=== PATIENT | male | born 1970 | race Caucasian/White ===

== ENCOUNTER 2025-05-10 19:56 | Emergency (ER) | payer BC ==
[2025-05-10 20:40] LABS: Absolute Lymphocytes (CBC) 3.2 K/uL (0.7-4.9); Hematocrit 43.2 % (39.6-49.0); Hemoglobin 15.5 g/dL (13.6-17.9); MCH 32.2 pg (27.0-35.0); MCHC 35.8 g/dL (32.0-36.0); MCV 89.9 fL (80-100); MPV 8.4 fL (7.6-11.3); Nucleated RBC Absolute Count 0.0 (0-0); Nucleated Red Blood Cells % 0.1 % (0-0); RBC Red Blood Cell Count 4.81 M/uL (4.33-5.43); White Blood Count 7.60 thou/uL (4.3-10.9)
[2025-05-10 20:44] LABS: PT Prothrombin Time 12.1 SECONDS (10-13.0); Protime INR 1.07
[2025-05-10 20:56] LABS: ALT/SGPT 49.0 U/L (16-61); AST/SGOT 29.0 U/L (15-37); Albumin 3.6 g/dL (3.4-5.0); Albumin/Globulin Ratio 1.0 (1.1-1.8); Alkaline Phosphatase 81.0 U/L (45-117); Anion Gap 11.9 mEq/L (5.0-15.0); BUN Blood Urea Nitrogen 10.0 mg/dL (7-18); Bilirubin Indirect, Calculated 0.4 mg/dL (0.2-0.8); Globulin 3.7 g/dL (2.3-3.5); Glucose Level 110.0 mg/dL (74-106); Magnesium 2.2 mg/dL (1.6-2.4); NT PRO-BNP 44.0 pg/mL (<125); Potassium 3.9 mEq/L (3.5-5.1); Troponin High Sensitivity 4.7 pg/mL (<58.9)
[2025-05-10] MEDS ORDERED: ASPIRIN 81 MG CHEWABLE TABLET ONE (21:16)
--- NOTE | 2025-05-10 21:17 | RAD REPORT ---
Procedure: Chest Single View HISTORY: Chest pain COMPARISON: 2007 FINDINGS: The lungs appear clear of acute infiltrate. No significant pleural effusion noted. The heart is normal size. IMPRESSION: No acute abnormality is displayed.
--- NOTE | 2025-05-10 21:50 | RAD REPORT ---
EXAMINATION: CTA CHEST PE CLINICAL INDICATION: Chest pain TECHNIQUE: 100 cc 370 Isovue administered intravenously. This examination was performed according to an angiographic protocol with 3D post-processing. This involves 3D reconstructions, MIPs, volume rendered images and/or shaded surface rendering. One or more of the following dose reduction techniqu es were used: Automated exposure control, adjustment of the mA and/or kV according to patient size, and/or iterative reconstruction. Unless otherwise specified, incidental findings do not require dedic ated imaging follow-up. [id number]. COMPARISON: No prior exam. FINDINGS: The opacification pulmonary arteries is suboptimal. No gross pulmonary embolus seen. An aortic aneurysm not noted. No pleural effusion. No pericardial effusion. Lungs are clear. Apparent mild thickening wall of the distal esophagus IMPRESSION: No gross pulmonary embolus seen Apparent mild thickening wall of the distal esophagus could be secondary to incomplete distention or inflammation
--- NOTE | 2025-05-10 23:14 | EDPHYS ---
Physician Documentation [facility] Name: Swapnil Purdy Age: 54 yrs Sex: Male : 1970 Arrival Date: 05/10/2025 Time: 19:56 Bed 8 Private MD: ED Physician Chris Moss HPI: 05/10 20:10 This 54 yrs old Male presents to ER via Ambulatory with complaints of Chest Pain. cp 20:10 The patient or guardian reports chest pain that is located primarily in the anterior cp chest wall, left. 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 The pain radiates to the left arm. The chest cp pain is described as sharp. Duration: The patient or guardian reports a single episode, that is still ongoing, but improving. Historical: - Allergies: 20:06 No Known Allergies; me1 - PMHx: 20:06 Hypertensive disorder; Asthma; me1 - PSHx: 20:06 Operative procedure on knee; me1 - Immunization history:: Adult Immunizations up to date. - Infectious Disease History:: Denies. - Social history:: Smoking status: Patient denies any tobacco usage or history of. ROS: 20:15 Constitutional: Negative for body aches, chills, fever, poor PO intake, cp 20:15 Cardiovascular: Positive for chest pain, cp 20:15 Eyes: Negative for injury, pain, redness, and discharge, cp 20:15 ENT: Negative for drainage from ear(s), ear pain, sore throat, difficulty swallowing, difficulty handling secretions, 20:15 Respiratory: Negative for cough, shortness of breath, wheezing, cp 20:15 Abdomen/GI: Negative for abdominal pain, vomiting, diarrhea, constipation, 20:15 Back: Negative for radiated pain, 20:15 Neuro: Negative for altered mental status, dizziness, headache, numbness, weakness, 20:15 All other systems are negative, Exam: 20:16 Constitutional: The patient appears in no acute distress, alert, awake, cp non-diaphoretic, non-toxic, well developed, well nourished, 20:16 Head/Face: Normocephalic, atraumatic. cp 20:16 Eyes: Periorbital structures: appear normal, Conjunctiva: normal, no exudate, no injection, Sclera: no appreciated abnormality, Lids and lashes: appear normal, bilaterally, 20:16 ENT: External ear(s): are unremarkable, Nose: is normal, Mouth: Lips: moist, Oral mucosa: moist, Posterior pharynx: Airway: no evidence of obstruction, patent, 20:16 Neck: ROM/movement: is normal, is supple, without pain, no range of motions limitations, 20:16 Chest/axilla: Inspection: normal, Palpation: crepitus, is not appreciated, tenderness, is not appreciated, 20:16 Cardiovascular: Rate: normal, Rhythm: regular, Edema: is not appreciated, JVD: is not appreciated, 20:16 Respiratory: the patient does not display signs of respiratory distress, Respirations: normal, no use of accessory muscles, no retractions, labored breathing, is not present, Breath sounds: are clear throughout, no decreased breath sounds, no stridor, no wheezing, 20:16 Abdomen/GI: Inspection: abdomen appears normal, Palpation: abdomen is soft and non-tender, in all quadrants, 20:16 Back: pain, is absent, ROM is normal, 20:16 Neuro: Orientation: to person, place \T\ time. Mentation: is normal, Motor: moves all fours, strength is normal, Sensation: is normal, 20:17 ECG was reviewed by the Attending Physician. Vital Signs: 20:04 BP 126 / 83; Pulse 95; Resp 18; Temp 98.1; Pulse Ox 98% ; Weight 120.2 kg; Height 6 ft. me1 2 in. ; Pain 3/10; 22:45 BP 115 / 81; Pulse 80; Resp 18; Pulse Ox 97% on R/A; lg3 20:04 Body Mass Index 34.02 (120.20 kg, 187.96 cm) me1 20:04 Pain Scale: Adult me1 MDM: 20:07 Medical Screening Exam initiated cp 21:00 Differential diagnosis: abnormal EKG, acute myocardial infarction, pancreatitis, cp pleurisy, pneumonia, pneumothorax, pulmonary embolus, stable angina, thoracic aortic disection, unstable angina. 23:11 Data reviewed: vital signs, nurses notes, lab test result(s), EKG, radiologic studies, cp CT scan, plain films. ED course: Vital signs stable. Chest pain resolved. Discussed results of today's testing to include negative initial and repeat troponin, EKG negative for STEMI and CT chest negative for PE. 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 23:11 I considered the following discharge prescriptions or medication management in the emergency department Medications were administered in the Emergency Department. See MAR. 23:11 Independent interpretation of the following test(s) in the Emergency Department EKG: See my EKG interpretation above X-Ray: My interpretation is chest image negative for infiltrates. Care significantly affected by the following chronic conditions: Hypertension. Counseling: I had a detailed discussion with the patient and/or guardian regarding the historical points, exam findings, and any diagnostic results supporting the discharge/admit diagnosis, lab results, radiology results, the need for outpatient follow up, a oceanic sciences professor, to return to the emergency department if symptoms worsen or persist or if there are any questions or concerns that arise at home. Response to treatment: the patient's symptoms have resolved after treatment, the patient's pain is gone. 05/10 20:07 Order name: Basic Metabolic Panel; Complete Time: 22:13 05/10 22:13 Interpretation: Normal except: NA 134; GLUC 110; CA 8.3. 05/10 20:07 Order name: CBC with Diff; Complete Time: 22:13 05/10 20:07 Order name: LFT's; Complete Time: 22:13 cp 05/10 20:07 Order name: Magnesium; Complete Time: 22:13 05/10 20:07 Order name: NT PRO-BNP; Complete Time: 22:13 cp 05/10 20:07 Order name: PT-INR; Complete Time: 22:13 cp 05/10 20:07 Order name: Troponin HS; Complete Time: 22:13 cp 05/10 22:13 Interpretation: Reviewed. 05/10 22:14 Order name: Troponin High Sensitivity; Complete Time: 23:11 cp 05/10 23:11 Interpretation: Reviewed. 05/10 20:07 Order name: XRAY Chest (1 view); Complete Time: 22:13 cp 05/10 21:14 Order name: CT Chest For PE Angio; Complete Time: 22:13 05/10 20:07 Order name: Cardiac monitoring; Complete Time: 21:15 05/10 20:07 Order name: EKG - Nurse/Tech; Complete Time: 20:27 cp 05/10 20:07 Order name: IV Saline Lock; Complete Time: 20:27 cp 05/10 20:07 Order name: Labs collected and sent; Complete Time: 20:27 cp 05/10 20:07 Order name: O2 Per Protocol; Complete Time: 21:15 cp 05/10 20:07 Order name: O2 Sat Monitoring; Complete Time: 22:52 cp EC:17 Rate is 96 beats/min. Rhythm is regular. MO interval is normal. QRS interval is normal. cp QT interval is normal. T waves are Inverted in lead aVR. Interpreted by me. Reviewed by me. Administered Medications: 21:27 Drug: Aspirin PO Chewable Tablet 324 mg PO once; 81 mg tablets x 4 Route: PO; lg3 23:26 Follow up: Response: No adverse reaction lg3 Disposition: 05/11 07:26 Co-signature as Attending Physician, Chris Moss MD I agree with the assessment sp4 and plan of care. I reviewed the patient's care provided by the Advanced Practice Provider and agree with the diagnosis and treatment plan. Disposition Summary: 05/10/25 23:14 Discharge Ordered Notes: Location: Home cp Problem: new cp Symptoms: have improved cp Condition: Stable cp Diagnosis - Chest pain, unspecified cp Followup: cp - With: Private Physician - When: 2 - 3 days - Reason: Recheck today's complaints Discharge Instructions: - Discharge Summary Sheet cp - Nonspecific Chest Pain, Adult cp - Aspirin and Your Heart cp Forms: - Medication Reconciliation Form cp - Antibiotic Education cp - Prescription Opioid Use cp - Patient Portal Instructions cp - Leadership Thank You Letter cp Signatures: Dispatcher [employer] EDMS Demetri Lennon PA-C PA-C cp Able, Lacie, RN RN lg3 Chris Moss MD MD sp4 Cheryl Rahman RN RN me1 Corrections: (The following items were deleted from the chart) 05/10 20:08 20:08 BASIC METABOLIC PANEL+C.LAB.BRZ ordered. EDMS EDMS 20:08 20:08 CBC+H.LAB.BRZ ordered. EDMS EDMS 20:08 20:08 HEPATIC FUNCTION+C.LAB.BRZ ordered. EDMS EDMS 20:08 20:08 MAGNESIUM+C.LAB.BRZ ordered. EDMS EDMS 20:08 20:08 PROBNP+C.LAB.BRZ ordered. EDMS EDMS 20:08 20:08 PROTIME (+INR)+COAG.LAB.BRZ ordered. EDMS EDMS 20:08 20:08 Troponin High Sensitivity+C.LAB.BRZ ordered. EDMS EDMS 20:08 20:08 Chest Single View+RAD.RAD.BRZ ordered. EDMS EDMS
--- NOTE | 2025-05-10 23:14 | ER ---
Nurse's Notes [facility] Name: Swapnil Purdy Age: 54 yrs Sex: Male : 1970 Arrival Date: 05/10/2025 Time: 19:56 Bed 8 Private MD: Diagnosis: Chest pain, unspecified Presentation: 05/10 20:04 Chief complaint: Patient states: sudden onset of left sided chest pain, radiating down me1 left arm, "stabbing" 5/10 at worst. 3/10 now. Denies sob. Denies nausea. Coronavirus screen: Vaccine status: Patient reports receiving the 2nd dose of the covid vaccine. Ebola Screen: No symptoms or risks identified at this time. Initial Sepsis Screen: Does the patient meet any 2 criteria? HR > 90 bpm. Does the patient have a suspected source of infection? No. Patient's initial sepsis screen is negative. Risk Assessment: Do you want to hurt yourself or someone else? Patient reports no desire to harm self or others. Onset of symptoms was May 10, 2025 at 19:15. 20:04 [place] [facility] [place] Acuity: NORMAN 3 me1 Triage Assessment: 20:28 General: Appears comfortable, Behavior is calm, cooperative. Pain: Denies pain. Neuro: ha1 Level of Consciousness is awake, alert, obeys commands, Oriented to person, place, time, situation. Cardiovascular: Capillary refill < 3 seconds Patient's skin is warm and dry. Cardiovascular: Reports since HAD CHEST PAIN AT HOME THAT LAST FOR 30 MINUTES. DENIES PAIN RIGHT NOW. Respiratory: Airway is patent Respiratory effort is even, unlabored, Respiratory pattern is regular, symmetrical. GI: Abdomen is round non-distended, obese. : No signs and/or symptoms were reported regarding the genitourinary system. Derm: Skin is pink, warm \\T\\ dry. Musculoskeletal: Circulation, motion, and sensation intact. Range of motion: intact in all extremities. Historical: - Allergies: 20:06 No Known Allergies; me1 - PMHx: 20:06 Hypertensive disorder; Asthma; me1 - PSHx: 20:06 Operative procedure on knee; me1 - Immunization history:: Adult Immunizations up to date. - Infectious Disease History:: Denies. - Social history:: Smoking status: Patient denies any tobacco usage or history of. Screenin:28 [facility] ED Fall Risk Assessment (Adult) History of falling in the last 3 months, ha1 including since admission No falls in past 3 months (0 pts) Confusion or Disorientation No (0 pts) Intoxicated or Sedated No (0 pts) Impaired Gait No (0 pts) Mobility Assist Device Used No (0 pt) Altered Elimination No (0 pt) Score/Fall Risk Level 0 - 2 = Low Risk Oriented to surroundings, Maintained a safe environment, Educated pt \\T\\ family on fall prevention, incl call for assistance when getting out of bed, Hourly rounding (assess needs \\T\\ fall precautionary measures) done. Abuse screen: Denies threats or abuse. Denies injuries from another. Nutritional screening: No deficits noted. Tuberculosis screening: No symptoms or risk factors identified. Assessment: 21:27 General: Appears in no apparent distress. comfortable, Behavior is calm, cooperative. lg3 Pain: Complains of pain in left arm Pain does not radiate. Pain began 3 hours ago. Neuro: No deficits noted. Garcia Agitation-Sedation Scale (RASS): 0 - Alert and Calm Level of Consciousness is awake, alert, obeys commands, Oriented to person, place, time, situation. Cardiovascular: Denies chest pain, Capillary refill < 3 seconds Clubbing of nail beds is absent JVD is absent Patient's skin is warm and dry. Respiratory: No deficits noted. Airway is patent Respiratory effort is even, unlabored, Respiratory pattern is regular, symmetrical. GI: No deficits noted. No signs and/or symptoms were reported involving the gastrointestinal system. : No signs and/or symptoms were reported regarding the genitourinary system. EENT: No deficits noted. No signs and/or symptoms were reported regarding the EENT system. Derm: No deficits noted. No signs and/or symptoms reported regarding the dermatologic system. Skin is intact, is healthy with good turgor, Skin is dry, Skin is normal, Skin temperature is warm. Musculoskeletal: Circulation, motion, and sensation intact. Range of motion: intact in all extremities, Reports pain in left arm. 22:53 Reassessment: Patient appears in no apparent distress at this time. No changes from lg3 previously documented assessment. Patient and/or family updated on plan of care and expected duration. Pain level reassessed. Patient is alert, oriented x 3, equal unlabored respirations, skin warm/dry/pink. Patient states feeling better. Patient states symptoms have improved. Vital Signs: 20:04 BP 126 / 83; Pulse 95; Resp 18; Temp 98.1; Pulse Ox 98% ; Weight 120.2 kg; Height 6 ft. me1 2 in. ; Pain 3/10; 22:45 BP 115 / 81; Pulse 80; Resp 18; Pulse Ox 97% on R/A; lg3 20:04 Body Mass Index 34.02 (120.20 kg, 187.96 cm) me1 20:04 Pain Scale: Adult me1 ED Course: 20:03 Patient arrived in ED. me1 20:03 Patient has correct armband on for positive identification. Bed in low position. Call ha1 light in reach. Side rails up X 1. Adult w/ patient. Client placed on continuous cardiac and pulse oximetry monitoring. NIBP monitoring applied. 20:06 Triage completed. me1 20:06 Demetri Lennon PA-C is PHCP. cp 20:06 Chris Moss MD is Attending Physician. cp 20:06 Arm band placed on Patient placed in an exam room. me1 20:27 Basic Metabolic Panel Sent. ha1 20:27 CBC with Diff Sent. ha1 20:27 LFT's Sent. ha1 20:27 Magnesium Sent. ha1 20:27 NT PRO-BNP Sent. ha1 20:28 PT-INR Sent. ha1 20:28 Troponin HS Sent. ha1 20:28 Inserted saline lock: 20 gauge in right antecubital area, using aseptic technique. ha1 Blood collected. Flushed with 10 mL NS. Patient maintains SpO2 saturation greater than 95% on room air. 21:08 XRAY Chest (1 view) In Process Unspecified. EDMS 21:27 Door closed. Noise minimized. Warm blanket given. Pillow given. Family accompanied lg3 patient. 21:42 CT Chest For PE Angio In Process Unspecified. EDMS 22:44 Tory Stein, NICOLE is Primary Nurse. lg3 23:26 No provider procedures requiring assistance completed. IV discontinued, intact, lg3 bleeding controlled, No redness/swelling at site. Pressure dressing applied. Administered Medications: 21:27 Drug: Aspirin PO Chewable Tablet 324 mg PO once; 81 mg tablets x 4 Route: PO; lg3 23:26 Follow up: Response: No adverse reaction lg3 Medication: 20:30 VIS not applicable for this client. ha1 Outcome: 23:14 Discharge ordered by . miles 23:26 Discharged to home ambulatory, with significant other, lg3 23:26 Condition: stable 23:26 Discharge instructions given to patient, Instructed on discharge instructions, follow up and referral plans. Demonstrated understanding of instructions, follow-up care, 23:26 Patient left the ED. lg3 Signatures: Dispatcher [employer] EDMS Demetri Lennon PA-C PATory Chacon cp RN RN lg3 Marichuy Booth, RN RN ha1 Cheryl Rahman RN RN mn1
[2025-05-10 23:39] VITALS: TEMP 98.1
[2025-05-10 23:40] VITALS: BP 115/81; O2SAT 97
== END 2025-05-10 23:26 | disposition home or self-care (01) ==
LOC: ER 19:56
DX: R07.89 Other chest pain (principal); I10 Essential (primary) hypertension
CPT/HCPCS: 93005; 85025; 80048; 36415; 83735; 85610; 80076; 84484 ×2; 83880; 71275; 71045; 99284; Q9967